=== PATIENT | female | born 1965 | race Hispanic/Latino ===

== ENCOUNTER 2019-02-26 16:50 | Emergency (ER) | payer MEDICARE ==
[~2019-02-26 16:50] MED LIST: AMLO5TAB4 PO; ATOR20TA PO; CIPR-279 PO; GABA-531 PO; GLIP5TAB11 PO; LACT10SO32 PO; LISI40TA4 PO; ONDA4TAB9 PO; TYL3 PO
[2019-02-26 17:59] LABS: BASOPHILS % (AUTO) 0.4 % (0.0-5.0); EOSINOPHILS % (AUTO) 2.6 % (0.0-8.0); HEMATOCRIT 35.3 % (36-48); LYMPHOCYTES % (AUTO) 14.2 % (21.0-51.0); MEAN CORPUSCULAR HEMOGLOBIN 28.6 pg (27.0-33.0); MEAN CORPUSCULAR VOLUME 86.7 fL (79-99); MONOCYTES % (AUTO) 9.9 % (3.0-13.0); NEUTROPHILS % (AUTO) 72.9 % (40.0-77.0); PLATELET COUNT (AUTO) 200 K/uL (130-400); RED BLOOD CELL COUNT(AUTO) 4.07 MIL/uL (4.00-5.50); RED CELL DISTRIBUTION WIDTH 14.3 % (11.0-15.5); WHITE BLOOD COUNT (AUTO) 9.3 K/uL (4.8-10.8)
[2019-02-26 18:09] LABS: CREATININE 4.3 mg/dL (0.5-1.5); POTASSIUM 3.6 mmol/L (3.5-5.1)
[2019-02-26 18:10] LABS: APPEARANCE,URINE Cloudy (CLEAR); BILIRUBIN,URINE Negative (NEGATIVE); COLOR,URINE Yellow (YELLOW); GLUCOSE, URINE (UA) 250 mg/dL (NEGATIVE); KETONES,URINE Trace mg/dL (NEGATIVE); LEUKOCYTE ESTERASE ,URINE Moderate (NEGATIVE); NITRATE,URINE Negative (NEGATIVE); OCCULT BLOOD,URINE Negative (NEGATIVE); PROTEIN,URINE >=1000 mg/dL (NEGATIVE)
[2019-02-26 18:21] LABS: ALBUMIN 3.5 g/dL (3.5-5.0); BILIRUBIN,DIRECT 0.1 mg/dL (0.0-0.3); BILIRUBIN,TOTAL 0.4 mg/dL (0.2-1.0); TOTAL PROTEIN, SERUM 8.2 g/dL (6.0-8.3)
[2019-02-26 18:55] LABS: BACTERIA,URINE Moderate /HPF (None Seen); RBC,URINE None Seen /HPF (0-1); WBC,URINE 51-100 /HPF (0-1)
[2019-02-26] MEDS ORDERED: LIDOCAINE HCL-MPF 1% 2ML VIAL ONE ×2 (19:16→19:18)
[2019-02-26] MEDS ORDERED: CEFTRIAXONE SODIUM 1 GM ONE (19:16)
[2019-02-26] MEDS ORDERED: HYDROCODONE/ACETAMINOPHEN 10/325 MG TAB ONE (19:25)
== END 2019-02-26 19:52 | disposition home or self-care (01) ==
LOC: EDH 16:50
DX: N12 Tubulo-interstitial nephritis, not specified as acute or chronic (principal); E78.5 Hyperlipidemia, unspecified; I12.0 Hypertensive chronic kidney disease with stage 5 chronic kidney disease or end stage renal disease; E11.22 Type 2 diabetes mellitus with diabetic chronic kidney disease; N18.6 End stage renal disease; J45.909 Unspecified asthma, uncomplicated; Z88.8 Allergy status to other drugs, medicaments and biological substances; Z99.2 Dependence on renal dialysis; Z79.4 Long term (current) use of insulin
CPT/HCPCS: 36415; 74176; 80048; 80076; 81001; 83690; 84484; 85025; 93005; 96372; 99285; J0696; J3490 ×2

== ENCOUNTER → 2019-10-22 | Outpatient (CLI) | payer MEDICARE ==
[~2019-10-22] MED LIST changes: +ONDA-104 PO; -ONDA4TAB9 PO
== END | disposition home or self-care (01) ==
LOC: RAH 14:20
PROVIDERS: ATTEND Thoracic Surgery (Cardiothoracic Vascular Surgery)
DX: T82.590A Other mechanical complication of surgically created arteriovenous fistula, initial encounter (principal); N18.6 End stage renal disease; Z98.890 Other specified postprocedural states; Y82.8 Other medical devices associated with adverse incidents; Y92.89 Other specified places as the place of occurrence of the external cause; Y84.1 Kidney dialysis as the cause of abnormal reaction of the patient, or of later complication, without mention of misadventure at the time of the procedure
CPT/HCPCS: 93990

== ENCOUNTER 2020-02-02 07:39 | Day surgery (SDC) | payer MEDICARE ==
[~2020-02-02] VITALS: Ht 142.2 cm; Wt 76.6 kg
[2020-02-02] VITALS (17 sets, daily range): BP systolic 105–137; BP diastolic 38–85
[2020-02-02 08:38] LABS: BASOPHILS % (AUTO) 0.6 % (0.0-5.0); EOSINOPHILS % (AUTO) 3.5 % (0.0-8.0); HEMATOCRIT 39.6 % (36-48); LYMPHOCYTES % (AUTO) 16.9 % (21.0-51.0); MEAN CORPUSCULAR HEMOGLOBIN 28.8 pg (27.0-33.0); MEAN CORPUSCULAR HGB CONC 31.8 g/dL (32.0-36.0); MEAN CORPUSCULAR VOLUME 90.4 fL (79-99); NEUTROPHILS % (AUTO) 71.7 % (40.0-77.0); PLATELET COUNT (AUTO) 186 K/uL (130-400); RED BLOOD CELL COUNT(AUTO) 4.38 MIL/uL (4.00-5.50); RED CELL DISTRIBUTION WIDTH 13.6 % (11.0-15.5); WHITE BLOOD COUNT (AUTO) 6.3 K/uL (4.8-10.8)
[2020-02-02 08:57] LABS: ALBUMIN 3.6 g/dL (3.5-5.0); BILIRUBIN,TOTAL 0.5 mg/dL (0.2-1.0); CREATININE 4.8 mg/dL (0.5-1.5); POTASSIUM 4.3 mmol/L (3.5-5.1); TOTAL PROTEIN, SERUM 8.5 g/dL (6.0-8.3)
[2020-02-02 09:01] LABS: INR 0.98 (0.85-1.15); PARTIAL THROMBOPLASTIN TIME 30.5 SEC (26.3-35.5); PROTHROMBIN TIME 10.6 SEC (9.6-11.6)
[2020-02-02] MEDS ORDERED: CEFUROXIME SODIUM 1.5 GM VIAL ONE (10:22)
[2020-02-02] MEDS ORDERED: PROPOFOL 10 MG/ML 20ML VIAL IV ONE (10:26)
[2020-02-02] MEDS ORDERED: DEXAMETHASONE SOD PHOSPHATE 10MG/ML 1ML VIAL ONE (10:26)
[2020-02-02] MEDS ORDERED: GLYCOPYRROLATE 1 MG/5 ML SYRINGE ONE (10:26)
[2020-02-02] MEDS ORDERED: MIDAZOLAM HCL 1 MG/ML 2ML VIAL ONE (10:26)
[2020-02-02] MEDS ORDERED: FENTANYL CITRATE PF 50 MCG/1 ML 2ML VIAL ONE ×2 (10:26→12:18)
[2020-02-02] MEDS ORDERED: NEOSTIGMINE 5MG/5ML SYR IV ONE (10:26)
[2020-02-02] MEDS ORDERED: CEFAZOLIN SODIUM 1 GM VIAL ONE (10:26)
[2020-02-02] MEDS ORDERED: ONDANSETRON HCL 4 MG/2 ML VIAL ONE (10:26)
[2020-02-02] MEDS ORDERED: LIDOCAINE PF 2% 5ML ABBOJECT ONE (10:26)
[2020-02-02] MEDS ORDERED: ROCURONIUM 10MG/1ML SYR 10 MG/ML ML ONE (10:27)
[2020-02-02] MEDS ORDERED: OCTYL 2-CYANOACRYLATE 1 EACH TP ONE (10:27)
[2020-02-02] MEDS ORDERED: EPHEDRINE SULFATE 50 MG/ML AMPULE ONE (10:52)
[2020-02-02] MEDS ORDERED: GABA-529 PO (11:16)
[2020-02-02] MEDS ORDERED: INSU100C14 SQ (11:16)
[2020-02-02] MEDS ORDERED: ATOR10TA69 PO (11:16)
[2020-02-02] MEDS ORDERED: METO25TA6 PO (11:16)
[2020-02-02] MEDS ORDERED: AMLO-258 PO (11:16)
== END 2020-02-02 14:20 | disposition home or self-care (01) ==
LOC: DAH 07:39 → MERGE 07:39 → DAH 14:20
PROVIDERS: ATTEND Thoracic Surgery (Cardiothoracic Vascular Surgery)
DX: I12.0 Hypertensive chronic kidney disease with stage 5 chronic kidney disease or end stage renal disease (principal); N18.6 End stage renal disease; E11.22 Type 2 diabetes mellitus with diabetic chronic kidney disease; F41.9 Anxiety disorder, unspecified; F32.9 Major depressive disorder, single episode, unspecified; E78.5 Hyperlipidemia, unspecified; Z79.82 Long term (current) use of aspirin; Z79.899 Other long term (current) drug therapy
CPT/HCPCS: 36415; 36830; 71046; 80053; 82948 ×2; 83036; 84703; 85025; 85610; 85730; 93005; A4215; A4221; A4222; A4223; A4649 ×4; A4663; A4930 ×2; A6207; C1713 ×2; C1768; J0690; J0697; J1100; J1644; J2001; J2250; J2405; J2704; J2710; J3010 ×2; J3490 ×2; J7030; J7040

== ENCOUNTER 2020-02-08 13:21 | Emergency (ER) | payer MEDICARE ==
[~2020-02-08 13:21] MED LIST changes: +AMLO10TA7 PO; +ATOR10TA69 PO; +GABA-529 PO; +INSU100C14 SQ; +METO25TA6 PO
[2020-02-08] MEDS ORDERED: ONDANSETRON HCL 4 MG/2 ML VIAL ONE (14:43)
[2020-02-08] MEDS ORDERED: MORPHINE SULFATE 2 MG/ML 1ML SYG ONE (14:44)
[2020-02-08 15:03] LABS: BASOPHILS % (AUTO) 0.3 % (0.0-5.0); CREATININE 6.3 mg/dL (0.5-1.5); EOSINOPHILS % (AUTO) 2.8 % (0.0-8.0); HEMATOCRIT 36.4 % (36-48); LYMPHOCYTES % (AUTO) 15.2 % (21.0-51.0); MEAN CORPUSCULAR HEMOGLOBIN 28.1 pg (27.0-33.0); MEAN CORPUSCULAR HGB CONC 32.1 g/dL (32.0-36.0); MEAN CORPUSCULAR VOLUME 87.5 fL (79-99); MONOCYTES % (AUTO) 6.8 % (3.0-13.0); NEUTROPHILS % (AUTO) 74.6 % (40.0-77.0); PLATELET COUNT (AUTO) 189 K/uL (130-400); POTASSIUM 4.6 mmol/L (3.5-5.1); RED BLOOD CELL COUNT(AUTO) 4.16 MIL/uL (4.00-5.50); RED CELL DISTRIBUTION WIDTH 13.2 % (11.0-15.5); WHITE BLOOD COUNT (AUTO) 7.8 K/uL (4.8-10.8)
[2020-02-08 15:07] LABS: ALBUMIN 3.5 g/dL (3.5-5.0); BILIRUBIN,TOTAL 0.3 mg/dL (0.2-1.0); TOTAL PROTEIN, SERUM 8.2 g/dL (6.0-8.3)
[2020-02-08 16:13] LABS: APPEARANCE,URINE CLOUDY (CLEAR); BILIRUBIN,URINE SMALL (NEGATIVE); COLOR,URINE YELLOW (YELLOW); GLUCOSE, URINE (UA) 100 mg/dL (NEGATIVE); KETONES,URINE 5 mg/dL (NEGATIVE); LEUKOCYTE ESTERASE ,URINE TRACE (NEGATIVE); NITRATE,URINE NEGATIVE (NEGATIVE); OCCULT BLOOD,URINE TRACE-INTACT (NEGATIVE); PROTEIN,URINE >=300 mg/dL (NEGATIVE); UROBILINOGEN,URINE 0.2 mg/dL (0.2-1.0)
[2020-02-08 17:34] LABS: BACTERIA,URINE Moderate /HPF (None Seen); WBC,URINE 26-50 /HPF (0-1)
[2020-02-08 17:35] LABS: SQUAMOUS EPITHELIAL CELL,UR Moderate /HPF (0-2)
[2020-02-08] MEDS ORDERED: CEFTRIAXONE SODIUM 1 GM ONE (18:08)
== END 2020-02-08 19:12 | disposition home or self-care (01) ==
LOC: EDH 13:21
DX: N12 Tubulo-interstitial nephritis, not specified as acute or chronic (principal); I12.0 Hypertensive chronic kidney disease with stage 5 chronic kidney disease or end stage renal disease; E11.22 Type 2 diabetes mellitus with diabetic chronic kidney disease; N18.6 End stage renal disease; J45.909 Unspecified asthma, uncomplicated; Z88.8 Allergy status to other drugs, medicaments and biological substances
CPT/HCPCS: 36415; 74176; 80053; 81001; 84484; 85025; 87077; 87088; 87186; 93005; 96374; 96375; 99285; J0696; J2405

== ENCOUNTER → 2020-05-22 | Outpatient (CLI) | payer MEDICARE ==
[~2020-05-22] MED LIST changes: +AMLO-258 PO; -AMLO10TA7 PO; +REGADENOSON 0.4 MG/5 ML PF SYG IVP SCH
[2020-05-22 10:00] VITALS: BP 226/96
[2020-05-22 10:40] VITALS: BP 240/108
[2020-05-22 11:14] VITALS: BP 218/108
--- NOTE | 2020-05-22 11:27 | NUR ---
PT WITH BP OF 226/96, P56. NISREEN KEARNEY GAVE TELEPHONE ORDER FOR CLONIDINE 0.1MG PO, GOAL SYSTOLIC PRESSURE OF 180. CLONIDINE WAS GIVEN AT 1000 FROM PT PERSONAL MEDS. AT 1040 BP WAS 240/108, P 54. AT 1114 BP WAS 218/108, P 52. PT WAS ADVISED TO REPORT TO ER R/T UNCONTROLLED HYPERTENSION, PT REFUSED. SHE WAS TAKEN HOME PER HER SISTER. EVENTS REPORTED TO VETO (NURSE FOR DR. BOLANOS) [facility] AT 1132.
== END | disposition home or self-care (01) ==
LOC: SHCH 05-18 10:55
PROVIDERS: ATTEND Internal Medicine Cardiovascular Disease
DX: R07.9 Chest pain, unspecified (principal)
CPT/HCPCS: J2785

== ENCOUNTER → 2020-05-26 | Outpatient (CLI) | payer MEDICARE ==
[~2020-05-26] MED LIST changes: -AMLO-258 PO; +AMLO10TA7 PO; -REGADENOSON 0.4 MG/5 ML PF SYG IVP SCH
== END | disposition home or self-care (01) ==
LOC: SHCH 07:51
PROVIDERS: ATTEND Internal Medicine Cardiovascular Disease
DX: I10 Essential (primary) hypertension (principal)
CPT/HCPCS: 93306

== ENCOUNTER → 2021-08-10 | Outpatient (CLI) | payer MEDICARE ==
[~2021-08-10] VITALS: Ht 147.3 cm; Wt 79.4 kg
[~2021-08-10] MED LIST changes: +AMLO-258 PO; -AMLO10TA7 PO; -LISI40TA4 PO; +LISI40TA9 PO; +REGADENOSON 0.4 MG/5 ML PF SYG IVP SCH
== END | disposition home or self-care (01) ==
LOC: SHCH 08:29
PROVIDERS: ATTEND Internal Medicine Cardiovascular Disease
DX: I25.10 Atherosclerotic heart disease of native coronary artery without angina pectoris (principal); I25.9 Chronic ischemic heart disease, unspecified; R07.89 Other chest pain; R53.83 Other fatigue
CPT/HCPCS: 78452; 93017; 96374; A9500 ×2; J2785 ×2

== ENCOUNTER 2022-01-12 15:35 | Inpatient (IN) | payer OTHER, MEDICARE ==
[~2022-01-12] VITALS: Ht 152.4 cm; Wt 77.5 kg
[~2022-01-12 15:35] MED LIST changes: -REGADENOSON 0.4 MG/5 ML PF SYG IVP SCH
[2022-01-12 16:00] LABS: BASOPHILS % (AUTO) 0.5 % (0.0-5.0); EOSINOPHILS % (AUTO) 7.2 % (0.0-8.0); HEMATOCRIT 30.1 % (36-48); MEAN CORPUSCULAR HEMOGLOBIN 27.7 pg (27.0-33.0); MEAN CORPUSCULAR HGB CONC 30.2 g/dL (32.0-36.0); MEAN CORPUSCULAR VOLUME 91.8 fL (79-99); MONOCYTES % (AUTO) 9.5 % (3.0-13.0); NEUTROPHILS % (AUTO) 64.5 % (40.0-77.0); PLATELET COUNT (AUTO) 121 K/uL (130-400); RED BLOOD CELL COUNT(AUTO) 3.28 MIL/uL (4.00-5.50); RED CELL DISTRIBUTION WIDTH 18.6 % (11.0-15.5); WHITE BLOOD COUNT (AUTO) 6.5 K/uL (4.8-10.8)
[2022-01-12 16:18] LABS: ALBUMIN 3.4 g/dL (3.5-5.0); BILIRUBIN,TOTAL 0.4 mg/dL (0.2-1.0); TOTAL PROTEIN, SERUM 7.4 g/dL (6.0-8.3)
[2022-01-12 16:26] LABS: CREATININE 12.2 mg/dL (0.5-1.5); POTASSIUM 7.3 mmol/L (3.5-5.1)
[2022-01-12] MEDS ORDERED: CALCIUM GLUC 1GM 1 GM in 0.9%NACL 100ML 100 ML IV ONE (16:30)
[2022-01-12] MEDS ORDERED: DEXTROSE 50%-WATER 25 GM/50 ML VIAL IV ONE (16:30)
[2022-01-12] MEDS ORDERED: INSULIN HUMULIN R 100 UNIT/ML 3ML IV ONE (16:30)
[2022-01-12] MEDS ORDERED: SODIUM BICARB 8.4% 50ML SYRINGE IVP ONE (16:30)
[2022-01-12] MEDS ORDERED: ALBUTEROL 0.083% 2.5 MG/3 ML INH IH ONE (17:30)
[2022-01-12] MEDS ORDERED: ALBUTEROL 0.083% 2.5 MG/3 ML INH IH SCH (18:00)
[2022-01-12] MEDS ORDERED: PHARMACY COMMUNICATION MISC SCH (18:00)
[2022-01-12] MEDS: KAYEXALATE 15GM/60ML PO NR (18:01)
[2022-01-12] MEDS: CEFTRIAXONE 1G VIAL IVP SCH (18:19)
[2022-01-12 20:10] LABS: POTASSIUM 5.1 mmol/L (3.5-5.1)
[2022-01-12 20:14] LABS: CREATININE 12.8 mg/dL (0.5-1.5)
[2022-01-12 22:18] VITALS: BP 116/57
[2022-01-12] MEDS ORDERED: ALPR0.5T8 PO (22:43)
[2022-01-12 23:13] VITALS: BP 111/50
[2022-01-13] VITALS (7 sets, daily range): BP systolic 113–137; BP diastolic 59–77
[2022-01-13 07:40] LABS: BASOPHILS % (AUTO) 0.4 % (0.0-5.0); EOSINOPHILS % (AUTO) 4.5 % (0.0-8.0); HEMATOCRIT 26.3 % (36-48); LYMPHOCYTES % (AUTO) 11.2 % (21.0-51.0); MEAN CORPUSCULAR HEMOGLOBIN 27.4 pg (27.0-33.0); MEAN CORPUSCULAR HGB CONC 29.7 g/dL (32.0-36.0); MEAN CORPUSCULAR VOLUME 92.3 fL (79-99); MONOCYTES % (AUTO) 8.9 % (3.0-13.0); NEUTROPHILS % (AUTO) 74.6 % (40.0-77.0); PLATELET COUNT (AUTO) 127 K/uL (130-400); RED BLOOD CELL COUNT(AUTO) 2.85 MIL/uL (4.00-5.50); RED CELL DISTRIBUTION WIDTH 18.6 % (11.0-15.5); WHITE BLOOD COUNT (AUTO) 7.5 K/uL (4.8-10.8)
[2022-01-13 08:39] LABS: ALBUMIN 3.2 g/dL (3.5-5.0); BILIRUBIN,TOTAL 0.3 mg/dL (0.2-1.0); POTASSIUM 5.1 mmol/L (3.5-5.1); TOTAL PROTEIN, SERUM 6.8 g/dL (6.0-8.3)
[2022-01-13 09:17] LABS: CREATININE 12.8 mg/dL (0.5-1.5)
[2022-01-13] MEDS ORDERED: SODIUM ZIRCONIUM CYCLOSILICATE 5 GM POWD.PACK PO SCH (12:00)
[2022-01-13] MEDS: ACETAMINOPHEN 325 MG TAB PO PRN (12:22)
[2022-01-13] MEDS ORDERED: PANT40GR PO (14:08)
[2022-01-13] MEDS ORDERED: IBUP-2784 PO (14:08)
[2022-01-13] MEDS ORDERED: CEPH500C2 PO (14:12)
[2022-01-13] MEDS: KAYEXALATE 15GM/60ML PO NR (15:56)
[2022-01-13] MEDS: CEFTRIAXONE 1G VIAL IVP SCH (17:20)
[2022-01-13] MEDS ORDERED: GABAPENTIN 100 MG CAPSULE ONE (19:34)
[2022-01-13] MEDS: GABAPENTIN 100 MG CAPSULE PO SCH (19:53)
[2022-01-14] VITALS (20 sets, daily range): BP systolic 109–133; BP diastolic 43–67
[2022-01-14 02:28] LABS: HEPATITIS B SURFACE ANTIGEN Non-Reactive (Negative)
[2022-01-14 03:44] LABS: BASOPHILS % (AUTO) 0.5 % (0.0-5.0); EOSINOPHILS % (AUTO) 7.4 % (0.0-8.0); HEMATOCRIT 26.6 % (36-48); LYMPHOCYTES % (AUTO) 12.7 % (21.0-51.0); MEAN CORPUSCULAR HEMOGLOBIN 27.7 pg (27.0-33.0); MEAN CORPUSCULAR HGB CONC 30.1 g/dL (32.0-36.0); MONOCYTES % (AUTO) 9.4 % (3.0-13.0); NEUTROPHILS % (AUTO) 69.8 % (40.0-77.0); NUCLEATED RED BLOOD CELLS 0.3 % (0.0-0.19); PLATELET COUNT (AUTO) 118 K/uL (130-400); RED BLOOD CELL COUNT(AUTO) 2.89 MIL/uL (4.00-5.50); RED CELL DISTRIBUTION WIDTH 19.1 % (11.0-15.5); WHITE BLOOD COUNT (AUTO) 6.1 K/uL (4.8-10.8)
[2022-01-14 03:54] LABS: INR 1.27 (0.85-1.15); PROTHROMBIN TIME 13.5 SEC (9.6-11.6)
[2022-01-14 03:59] LABS: ALBUMIN 3.2 g/dL (3.5-5.0); BILIRUBIN,TOTAL 0.4 mg/dL (0.2-1.0); TOTAL PROTEIN, SERUM 6.9 g/dL (6.0-8.3)
[2022-01-14 04:04] LABS: CREATININE 13.5 mg/dL (0.5-1.5)
[2022-01-14 05:25] LABS: % IRON SATURATION 25.4 % (22-44)
[2022-01-14] MEDS: ATORVASTATIN 10 MG TABLET PO SCH (07:51)
[2022-01-14] MEDS: AMLODIPINE 5 MG TAB PO SCH (07:51)
[2022-01-14] MEDS: METOPROLOL TARTRATE 25 MG TAB PO SCH (07:51)
[2022-01-14] MEDS: GABAPENTIN 100 MG CAPSULE PO SCH ×3 (08:12→20:17)
[2022-01-14] MEDS: FAMOTIDINE 20MG TAB PO SCH (10:54)
[2022-01-14] MEDS ORDERED: HEPARIN 10,000 UNIT/10ML (1,000 UNIT/ML) VIAL ONE ×2 (13:43→17:06)
[2022-01-14] MEDS ORDERED: LIDOCAINE HCL 1% 20 ML VIAL ONE (13:43)
[2022-01-14] MEDS: CEFTRIAXONE 1G VIAL IVP SCH (17:15)
[2022-01-14] MEDS: ACETAMINOPHEN 325 MG TAB PO PRN (17:16)
[2022-01-14] MEDS: EPOETIN ALFA-EPBX (ESRD) 10,000 UNIT/ML VIAL SQ SCH (20:18)
[2022-01-14] MEDS ORDERED: EPOETIN ALFA-EPBX (ESRD) 10,000 UNIT/ML VIAL SQ ONE (21:00)
[2022-01-15] VITALS (21 sets, daily range): BP systolic 85–127; BP diastolic 45–66
[2022-01-15 03:52] LABS: INR 1.23 (0.85-1.15); PROTHROMBIN TIME 13.2 SEC (9.6-11.6)
[2022-01-15 03:54] LABS: PARTIAL THROMBOPLASTIN TIME 34.4 SEC (26.3-35.5)
[2022-01-15 04:01] LABS: CREATININE 7.7 mg/dL (0.5-1.5); HEMATOCRIT 25.9 % (36-48); MEAN CORPUSCULAR HEMOGLOBIN 27.1 pg (27.0-33.0); MEAN CORPUSCULAR HGB CONC 29.7 g/dL (32.0-36.0); MEAN CORPUSCULAR VOLUME 91.2 fL (79-99); PHOSPHORUS 7.3 mg/dL (2.5-4.9); POTASSIUM 3.6 mmol/L (3.5-5.1); RED BLOOD CELL COUNT(AUTO) 2.84 MIL/uL (4.00-5.50); RED CELL DISTRIBUTION WIDTH 19.1 % (11.0-15.5); WHITE BLOOD COUNT (AUTO) 5.7 K/uL (4.8-10.8)
[2022-01-15] MEDS: ATORVASTATIN 10 MG TABLET PO SCH (07:57)
[2022-01-15] MEDS: AMLODIPINE 5 MG TAB PO SCH (07:57)
[2022-01-15] MEDS: METOPROLOL TARTRATE 25 MG TAB PO SCH (07:57)
[2022-01-15] MEDS: FAMOTIDINE 20MG TAB PO SCH (07:57)
[2022-01-15] MEDS: GABAPENTIN 100 MG CAPSULE PO SCH ×3 (07:58→20:48)
[2022-01-15] MEDS: ASPIRIN 81MG CHEW TAB PO SCH (13:19)
[2022-01-15] MEDS: ACETAMINOPHEN 325 MG TAB PO PRN ×2 (15:14→20:49)
[2022-01-15] MEDS ORDERED: COMPOUND IV MISC 1 EACH IVSOLN MISC PRN (17:30)
[2022-01-15] MEDS: HEPARIN 5,000 UNIT VIAL IJ SCH (17:47)
[2022-01-15] MEDS: CEFTRIAXONE 1G VIAL IVP SCH (18:01)
[2022-01-15] MEDS: IRON SUCROSE COMPLEX 300 MG in 0.9% NACL 250ML 250 ML IV SCH (18:17)
[2022-01-15] MEDS ORDERED: TRAMADOL HCL 50 MG TABLET PO ONE (21:30)
[2022-01-16] VITALS (12 sets, daily range): BP systolic 114–134; BP diastolic 44–68
[2022-01-16 04:05] LABS: HEMATOCRIT 27.3 % (36-48); MEAN CORPUSCULAR HEMOGLOBIN 28.2 pg (27.0-33.0); MEAN CORPUSCULAR HGB CONC 30.4 g/dL (32.0-36.0); MEAN CORPUSCULAR VOLUME 92.9 fL (79-99); RED BLOOD CELL COUNT(AUTO) 2.94 MIL/uL (4.00-5.50); WHITE BLOOD COUNT (AUTO) 4.5 K/uL (4.8-10.8)
[2022-01-16 04:23] LABS: POTASSIUM 3.5 mmol/L (3.5-5.1)
[2022-01-16] MEDS: ONDANSETRON 4MG INJ IVP PRN ×2 (10:18→15:26)
[2022-01-16] MEDS ORDERED: HYDROMORPHONE 0.5 MG SYG (0.5MG/0.5ML) IVP SCH (10:30)
[2022-01-16] MEDS: GABAPENTIN 100 MG CAPSULE PO SCH ×3 (12:53→20:15)
[2022-01-16] MEDS ORDERED: IOHEXOL 350 MG/ML 100ML INFUS..BTL IV ONE (13:14)
[2022-01-16] MEDS ORDERED: HEPARIN 10,000 UNIT/10ML (1,000 UNIT/ML) VIAL ONE (13:14)
[2022-01-16] MEDS ORDERED: MIDAZOLAM HCL 1 MG/ML 2ML VIAL ONE (13:15)
[2022-01-16] MEDS ORDERED: LIDOCAINE HCL 1% MDV 50ML VIAL ONE (13:15)
[2022-01-16] MEDS ORDERED: FENTANYL CITRATE PF 50 MCG/1 ML 2ML VIAL ONE (13:42)
[2022-01-16] MEDS: HEPARIN 5,000 UNIT VIAL IJ SCH (15:00)
[2022-01-16] MEDS: ATORVASTATIN 10 MG TABLET PO SCH (15:11)
[2022-01-16] MEDS: FAMOTIDINE 20MG TAB PO SCH (15:12)
[2022-01-16] MEDS: ASPIRIN 81MG CHEW TAB PO SCH (15:26)
[2022-01-16] MEDS: AMLODIPINE 5 MG TAB PO SCH (15:26)
[2022-01-16] MEDS: METOPROLOL TARTRATE 25 MG TAB PO SCH (15:26)
[2022-01-16] MEDS: CEFTRIAXONE 1G VIAL IVP SCH (17:53)
[2022-01-16] MEDS: IRON SUCROSE COMPLEX 300 MG in 0.9% NACL 250ML 250 ML IV SCH (17:54)
[2022-01-16] MEDS ORDERED: ALPRAZOLAM 0.5 MG TABLET PO PRN (18:00)
[2022-01-16] MEDS: EPOETIN ALFA-EPBX (ESRD) 10,000 UNIT/ML VIAL SQ SCH (20:15)
[2022-01-17] VITALS (19 sets, daily range): BP systolic 103–144; BP diastolic 42–62
[2022-01-17 03:27] LABS: HEMATOCRIT 27.4 % (36-48); MEAN CORPUSCULAR HEMOGLOBIN 27.6 pg (27.0-33.0); MEAN CORPUSCULAR HGB CONC 29.2 g/dL (32.0-36.0); MEAN CORPUSCULAR VOLUME 94.5 fL (79-99); NUCLEATED RED BLOOD CELLS 0.4 % (0.0-0.19); PLATELET COUNT (AUTO) 108 K/uL (130-400); RED CELL DISTRIBUTION WIDTH 19.3 % (11.0-15.5); WHITE BLOOD COUNT (AUTO) 4.9 K/uL (4.8-10.8)
[2022-01-17 03:34] LABS: CREATININE 6.5 mg/dL (0.5-1.5); POTASSIUM 4.5 mmol/L (3.5-5.1)
[2022-01-17 04:24] LABS: EOSINOPHILS % (MANUAL) 4 % (1-6); LYMPHOCYTES % (MANUAL) 26 % (22-44); MONOCYTES % (MANUAL) 2 % (2-9); SEGMENTED NEUTROPHILS % 68 % (40-70)
[2022-01-17 04:25] LABS: MAN.DIFF COMMENT-IMPRESSION MANUAL DIFFERENTIAL; PLATELET MORPHOLOGY COMMENT SLIGHTLY DECREASED
[2022-01-17] MEDS: GABAPENTIN 100 MG CAPSULE PO SCH ×2 (09:00→13:43)
[2022-01-17] MEDS: ASPIRIN 81MG CHEW TAB PO SCH (13:32)
[2022-01-17] MEDS: ATORVASTATIN 10 MG TABLET PO SCH (13:32)
[2022-01-17] MEDS: AMLODIPINE 5 MG TAB PO SCH (13:37)
[2022-01-17] MEDS: FAMOTIDINE 20MG TAB PO SCH (13:37)
[2022-01-17] MEDS: METOPROLOL TARTRATE 25 MG TAB PO SCH (13:38)
[2022-01-17] MEDS: HEPARIN 5,000 UNIT VIAL IJ SCH (15:00)
[2022-01-17] MEDS: ACETAMINOPHEN 325 MG TAB PO PRN (17:55)
[2022-01-17] MEDS: CEFTRIAXONE 1G VIAL IVP SCH (17:56)
== END 2022-01-17 18:35 | disposition home or self-care (01) | DRG 252 ==
LOC: EDH 15:35 → EDHIP 17:42 → 2AH 22:04
PROVIDERS: ADMIT Hospitalist; ATTEND Hospitalist
PROC: 02H633Z Insertion of Infusion Device into Right Atrium, Percutaneous Approach (ICD-10-PCS; 2022-01-14)
PROC: B5181ZA Fluoroscopy of Superior Vena Cava using Low Osmolar Contrast, Guidance (ICD-10-PCS; 2022-01-14)
PROC: B548ZZA Ultrasonography of Superior Vena Cava, Guidance (ICD-10-PCS; 2022-01-14)
PROC: 5A1D70Z Performance of Urinary Filtration, Intermittent, Less than 6 Hours Per Day (ICD-10-PCS; 2022-01-14)
PROC: 5A1D70Z Performance of Urinary Filtration, Intermittent, Less than 6 Hours Per Day (ICD-10-PCS; 2022-01-15)
PROC: 037Y3ZZ Dilation of Upper Artery, Percutaneous Approach (ICD-10-PCS; principal; 2022-01-16)
PROC: 3E03317 Introduction of Other Thrombolytic into Peripheral Vein, Percutaneous Approach (ICD-10-PCS; 2022-01-16)
PROC: B31H1ZZ Fluoroscopy of Right Upper Extremity Arteries using Low Osmolar Contrast (ICD-10-PCS; 2022-01-16)
PROC: 5A1D70Z Performance of Urinary Filtration, Intermittent, Less than 6 Hours Per Day (ICD-10-PCS; 2022-01-17)
DX: T82.868A Thrombosis due to vascular prosthetic devices, implants and grafts, initial encounter (principal); N18.6 End stage renal disease; I12.0 Hypertensive chronic kidney disease with stage 5 chronic kidney disease or end stage renal disease; I82.C12 Acute embolism and thrombosis of left internal jugular vein; E87.8 Other disorders of electrolyte and fluid balance, not elsewhere classified; Z99.2 Dependence on renal dialysis; E87.5 Hyperkalemia; D69.6 Thrombocytopenia, unspecified; E66.01 Morbid (severe) obesity due to excess calories; E78.5 Hyperlipidemia, unspecified; R55 Syncope and collapse; I25.10 Atherosclerotic heart disease of native coronary artery without angina pectoris; E11.42 Type 2 diabetes mellitus with diabetic polyneuropathy; D50.9 Iron deficiency anemia, unspecified; I95.9 Hypotension, unspecified; Y84.1 Kidney dialysis as the cause of abnormal reaction of the patient, or of later complication, without mention of misadventure at the time of the procedure; E11.22 Type 2 diabetes mellitus with diabetic chronic kidney disease; E78.00 Pure hypercholesterolemia, unspecified; Z79.899 Other long term (current) drug therapy; Z95.1 Presence of aortocoronary bypass graft; M19.90 Unspecified osteoarthritis, unspecified site; Z82.49 Family history of ischemic heart disease and other diseases of the circulatory system; Y92.89 Other specified places as the place of occurrence of the external cause; Z68.34 Body mass index [BMI] 34.0-34.9, adult
CPT/HCPCS: 36415; 36556; 36905; 70450; 71045; 77001; 80048; 80053; 82948; 83540; 83550; 83605; 83735; 84100; 84484; 85025; 85027; 85610; 85730; 86704; 86706; 87040; 87340; 90935; 93005; 93306; 93356; 93880; 94640; 99156; 99157; 99291; C1752; C1757; C1769; C1894; G0378; J0610; J0696; J1170; J1644; J1756; J1815; J2250; J2405; J3010; J3490; J7050; J7070; Q9967

== ENCOUNTER → 2022-05-16 | Outpatient (CLI) | payer OTHER, MEDICARE ==
[~2022-05-16] MED LIST changes: +ALPR0.5T8 PO; -AMLO-258 PO; -AMLO5TAB4 PO; -ATOR10TA69 PO; -ATOR20TA PO; +ATOR40TA69 PO; +AZIT250T9 PO; -CIPR-279 PO; +DOXY100T2 PO; -GABA-529 PO; -GABA-531 PO; -GLIP5TAB11 PO; -LACT10SO32 PO; -LISI40TA9 PO; +LOSA25TA41 PO; -METO25TA6 PO; +NITR0.4T50 SL; -ONDA-104 PO; +PANT40GR PO; +SUCR1TAB2 PO; +TRAM50TA4 PO; -TYL3 PO
[2022-05-16 12:55] LABS: ALBUMIN 3.3 g/dL (3.5-5.0); CREATININE 4.9 mg/dL (0.5-1.5); POTASSIUM 4.3 mmol/L (3.5-5.1); TOTAL PROTEIN, SERUM 7.6 g/dL (6.0-8.3)
== END | disposition home or self-care (01) ==
LOC: LAB 10:51
PROVIDERS: ATTEND Physician Assistant
DX: I10 Essential (primary) hypertension (principal)
CPT/HCPCS: 36415; 80053

== ENCOUNTER 2022-06-25 13:03 | Emergency (ER) | payer OTHER, MEDICARE ==
[~2022-06-25] VITALS: Ht 152.4 cm; Wt 77.6 kg
[2022-06-25 14:04] LABS: CARBON DIOXIDE 28 mmol/L (21-32); CHLORIDE 96 mmol/L (101-111); CREATININE 7.8 mg/dL (0.5-1.5); GLOMERULAR FILTR. RATE CALC 6 mL/min (>60); GLUCOSE,RANDOM 174 mg/dL (70-105); POTASSIUM 5.7 mmol/L (3.5-5.1); SODIUM SERUM 131 mmol/L (136-145); UREA NITROGEN, BLOOD 48 mg/dL (7-18)
[2022-06-25 14:09] LABS: ALBUMIN 2.9 g/dL (3.5-5.0); ASPARTATE AMINOTRANSFERASE 20 U/L (10-37)
[2022-06-25 14:31] LABS: ALANINE AMINOTRANSFERASE < 6 U/L (12-78)
[2022-06-25 14:41] LABS: BASOPHILS % (AUTO) 0.3 % (0.0-5.0); EOSINOPHILS % (AUTO) 1.4 % (0.0-8.0); HEMATOCRIT 33.6 % (36-48); LYMPHOCYTES % (AUTO) 10.8 % (21.0-51.0); MEAN CORPUSCULAR HEMOGLOBIN 27.4 pg (27.0-33.0); MEAN CORPUSCULAR HGB CONC 29.2 g/dL (32.0-36.0); MEAN CORPUSCULAR VOLUME 93.9 fL (79-99); MONOCYTES % (AUTO) 10.9 % (3.0-13.0); NEUTROPHILS % (AUTO) 76.3 % (40.0-77.0); PLATELET COUNT (AUTO) 107 K/uL (130-400); RED BLOOD CELL COUNT(AUTO) 3.58 MIL/uL (4.00-5.50); RED CELL DISTRIBUTION WIDTH 17.7 % (11.0-15.5); WHITE BLOOD COUNT (AUTO) 9.7 K/uL (4.8-10.8)
[2022-06-25 18:07] VITALS: BP 111/57
[2022-06-25] MEDS ORDERED: ACETAMINOPHEN 325 MG TAB ONE (18:13)
[2022-06-25] MEDS ORDERED: ACETAMINOPHEN 325 MG TAB PO ONE (18:30)
[2022-06-25] MEDS ORDERED: AMOX500C2 PO (18:46)
== END 2022-06-25 18:53 | disposition home or self-care (01) ==
LOC: EDH 13:03
DX: H66.92 Otitis media, unspecified, left ear (principal); E87.5 Hyperkalemia; I12.0 Hypertensive chronic kidney disease with stage 5 chronic kidney disease or end stage renal disease; E11.22 Type 2 diabetes mellitus with diabetic chronic kidney disease; N18.6 End stage renal disease; Z20.822 Contact with and (suspected) exposure to COVID-19; E78.00 Pure hypercholesterolemia, unspecified; Z88.8 Allergy status to other drugs, medicaments and biological substances; Z79.899 Other long term (current) drug therapy; Z79.4 Long term (current) use of insulin
CPT/HCPCS: 99284; 87635; 84484; 80053; 85025; 87804 ×2; 36415; 93005; C9803